=== PATIENT | male | born 1980 | race American Indian/Alaskan Native ===

== ENCOUNTER 2020-02-24 01:44 | Emergency (ER) | payer OTHER ==
[2020-02-24] MEDS ORDERED: ASPIRIN 325 MG TAB PO ONE (01:49)
--- NOTE | 2020-02-24 02:54 | XRay Report ---
CHEST 1 VIEW INDICATION: Chest pain. COMPARISON: None. FINDINGS: Support devices: None. Heart: Normal. Lungs/Pleura: No acute pulmonary or pleural findings. IMPRESSION: 1. No acute findings. Signer Name: Perez Hood MD Signed: 02/24/2020 2:50 AM Workstation Name: [id number]
[2020-02-24 03:01] LABS: Basophils % (Auto) 0.8 % (0.0-1.8); Eosinophils # (Auto) 0.3 K/mm3 (0.0-0.4); Eosinophils % (Auto) 4.9 % (0.0-4.3); Hematocrit 46.4 % (35.5-45.6); Hemoglobin 15.3 gm/dl (11.8-15.2); Lymphocytes # (Auto) 2.1 K/mm3 (1.2-5.4); Lymphocytes % (Auto) 38.1 % (13.4-35.0); Mean Corpuscular HGB Conc 33 % (32-34); Mean Corpuscular Volume 81 fl (84-94); Monocytes # (Auto) 0.7 K/mm3 (0.0-0.8); Monocytes % (Auto) 12.2 % (0.0-7.3); Platelet Count 245 K/mm3 (140-440); Red Blood Count 5.71 M/mm3 (3.65-5.03); Red Cell Distribution Width 12.8 % (13.2-15.2)
[2020-02-24 03:44] LABS: Blood Urea Nitrogen 11 mg/dL (9-20)
[2020-02-24 03:45] LABS: BUN/Creatinine Ratio 11; Calcium 9.4 mg/dL (8.4-10.2); Hemolysis Index 8
[2020-02-24] MEDS ORDERED: ACETAMINOPHEN 325 MG TAB PO ONE (04:10)
[2020-02-24] MEDS ORDERED: IBUPROFEN 400 MG TAB PO ONE (04:10)
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
[2020-02-24 06:17] VITALS: BP 139/95
== END 2020-02-24 06:28 | disposition home or self-care (01) ==
LOC: ED 01:44
DX: R07.89 Other chest pain (principal); R03.0 Elevated blood-pressure reading, without diagnosis of hypertension; I10 Essential (primary) hypertension; Z79.899 Other long term (current) drug therapy
CPT/HCPCS: 36415; 71045; 80048; 82550; 83735; 84484; 85025; 93005